=== PATIENT | male | born 1940 | race Caucasian/White ===

== ENCOUNTER 2019-07-21 12:04 | Inpatient (IN) | payer MEDICARE ==
[~2019-07-21] VITALS: Ht 180.3 cm; Wt 105.7 kg
[2019-07-21] MEDS ORDERED: ASPIRIN 81 MG CHEW TAB PO ONE ×2 (12:30→15:00)
--- NOTE | 2019-07-21 13:02 | Diagnostic Imaging Report ---
Exam: Chest one view Clinical history: Chest pain Findings: Mild increase in right basilar pulmonary opacity is noted which may represent early consolidation. There is no evidence of pleural effusion or pneumothorax. The cardiac size is within normal limits. The regional osseous structures are unremarkable. Signed by: Dr. Jalil Renner MD on 07/21/2019 12:59 PM
[2019-07-21 13:24] LABS: BILIRUBIN,URINE NEGATIVE (NEGATIVE); CLARITY,URINE SL CLOUDY (CLEAR); COLOR,URINE YELLOW (YELLOW); KETONES,URINE NEGATIVE (NEGATIVE); LEUKOCYTE ESTERASE ,URINE NEGATIVE (NEGATIVE); NITRITE,URINE NEGATIVE (NEGATIVE); PROTEIN,URINE DIPSTICK 1+ (NEGATIVE); URINE UROBILINOGEN 0.2 mg/dL (0.2 - 1)
[2019-07-21 13:28] LABS: BASOPHILS % 0.2 % (0.0-1.0); EOSINOPHILS # (AUTO) 0.1 (0.0-0.4); EOSINOPHILS % 0.7 % (0.0-6.0); HEMATOCRIT 37.8 % (38.2-49.6); HEMOGLOBIN 12.9 g/dL (14.0-18.0); LYMPHOCYTES # (AUTO) 0.8 (1.0-3.2); LYMPHOCYTES % 4.2 % (18.0-39.1); MEAN CORPUSCULAR HEMOGLOBIN 30.3 pg (28-32); MEAN CORPUSCULAR HGB CONC 34.1 g/dL (31-35); MEAN CORPUSCULAR VOLUME 88.7 fL (81-99); MONOCYTES # (AUTO) 1.5 (0.2-0.8); MONOCYTES % 7.6 % (4.4-11.3); NEUTROPHILS # (AUTO) 17.3 (2.1-6.9); NEUTROPHILS % 86.9 % (38.7-80.0); PLATELET COUNT 190 x10e3/uL (140-360); RED BLOOD COUNT 4.26 x10e6/uL (4.3-5.7); RED CELL DISTRIBUTION WIDTH 14.5 % (11.7-14.4)
[2019-07-21 13:45] LABS: ALANINE AMINOTRANSFERASE 22 IU/L (0-55); ALBUMIN 3.5 g/dL (3.5-5.0); ALBUMIN/GLOBULIN RATIO 0.9 (0.8-2.0); ALKALINE PHOSPHATASE 56 IU/L (40-150); ANION GAP 12.5 mmol/L (8-16); BLOOD UREA NITROGEN 17 mg/dL (7-26); BUN/CREATININE RATIO 14 (6-25); CALCIUM 9.7 mg/dL (8.4-10.2); CARBON DIOXIDE 24 mmol/L (22-29); CHLORIDE 100 mmol/L (98-107); CREATINE KINASE 80 IU/L (30-200); CREATININE, SERUM 1.24 mg/dL (0.72-1.25); EST GLOMERULAR FILTRATION RATE 57 ML/MIN (60-); GLUCOSE 107 mg/dL (74-118); POTASSIUM 3.5 mmol/L (3.5-5.1); SODIUM 133 mmol/L (136-145)
[2019-07-21 14:10] LABS: BACTERIA,URINE FEW /HPF; EPITHELIAL CELLS,URINE FEW /LPF; RBC,URINE 0-5 /HPF (0-5)
[2019-07-21 14:10] LABS: INR 1.22; PARTIAL THROMBOPLASTIN TIME 37.6 seconds (23.8-35.5)
[2019-07-21] MEDS ORDERED: SODIUM CHLORIDE FLUSH 10 ML SYR INJ PRN (14:45)
[2019-07-21] MEDS ORDERED: ONDANSETRON HCL INJ 2MG/ML 2ML 2 MG/ML VIAL IV PRN (14:45)
[2019-07-21] MEDS ORDERED: VANCOMYCIN 1GM/NS 250 ML 250 ML IV SCH (14:45)
--- OUTSIDE RECORDS SUMMARY | 2019-07-21 15:21 | XMS REPORT ---
Author Author [facility] Address Unknown Phone Unavailable Care Team Providers Care Resource Specialist Name Role Phone Markie HUGHES Unavailable Unavailable Problems This patient has no known problems. Allergies, Adverse Reactions, Alerts This patient has no known allergies or adverse reactions. Medications This patient has no known medications. Results Test Description Test Time Test Comments Text Results Atomic Results Result Comments CHEST SINGLE (NOT PORTABLE) 2019-07-21 12:57:00 [place] [address] Patient Name: AYSHA MAGANA MR #: [id number] : 1940 Age/Sex: 79/M Req #: [id number] Adm Physician: Ordered by: JAZMYN HUGHES MD Report #: [id number] Location: ER Room/Bed: Procedure: [id number] DX/CHEST SINGLE (NOT PORTABLE) Exam Date: 07/21/19 Exam Time: 1245 REPORT STATUS: Signed Exam: Chest one view Clinical history: Chest pain Findings: Mild increase in right basilar pulmonary opacity is noted which may represent early consolidation. There is no evidence of pleural effusion or pneumothorax. The cardiac size is within normal limits. The regional osseous structures are unremarkable. Signed by: Dr. Jalil Franks MD on 07/21/2019 12:59 PM Dictated By: PIERRE FRANKS MD [id number] Transcribed By: BUZZ on 07/21/191258 COPY TO: JAZMYN HUGHES MD
[2019-07-21 16:00] VITALS: BP 136/62
--- NOTE | 2019-07-21 16:00 | NUR ---
Received pt from ER at this time. Pt is aox4 and able to verbalize needs. Pt has redness to right lower ext. Breaths are even and unlabored on room air. IV to right AC is patent and intact.
[2019-07-21] MEDS ORDERED: ISOSORBIDE MONO20 MG PO (16:25)
[2019-07-21] MEDS ORDERED: AMLODIPINE BESYL5 MG PO (16:25)
[2019-07-21 16:28] VITALS: BP 136/62
--- NOTE | 2019-07-21 16:29 | Diagnostic Imaging Report ---
Exam: CT pulmonary angiogram Clinical History: Chest pain, shortness of breath Technique: Helical images of the chest were obtained after IV contrast administration using the pulmonary embolism protocol. DOSE REDUCTION: The exams was performed according to the departmental dose-optimization program which includes automated exposure control, adjustment of the mA and/or kV according to patient size and/or use of iterative reconstruction technique. Findings: There is no evidence of acute pulmonary embolism in the main pulmonary artery or its visualized branches. There is no evidence of pulmonary edema, consolidation, pleural effusion, or pneumothorax. Tracheobronchial tree is clear. There is no evidence of mediastinal or hilar adenopathy. The cardiac size is within normal limits. The great vessels are normal in caliber and configuration. The visualized upper abdominal solid organs are unremarkable. A small hiatal hernia is noted. Impression: No CT evidence of acute pulmonary embolism. Signed by: Dr. Jalil Renner MD on 07/21/2019 4:25 PM
[2019-07-21] MEDS ORDERED: SODIUM CHLORIDE 0.9% 250ML 250 ML ONE (16:35)
[2019-07-21] MEDS: ACETAMINOPHEN 325 MG TAB PO PRN (16:36)
--- NOTE | 2019-07-21 18:00 | NUR ---
Spoke with Dr. Christianson and received orders to restart home medications, and antibiotics.
[2019-07-21] MEDS ORDERED: HYDROCODONE/APAP 5MG-325MG TAB PO PRN (18:15)
[2019-07-21] MEDS ORDERED: SODIUM CHLORIDE 0.9% 50ML 50 ML ONE (19:05)
[2019-07-21] MEDS ORDERED: IOPAMIDOL 370 MG/ML 200 ML INFUS..BTL INJ ONE (19:05)
--- NOTE | 2019-07-21 19:15 | NUR ---
patient received awake, alert, sitting up on side of bed. no c/o pain noted. family at the bedside. pm assessment complete. patient instructed to call for assistance when needed.
[2019-07-21 19:30] VITALS: BP 121/59
--- NOTE | 2019-07-21 20:00 | NUR ---
Right lower extremity remains red and swollen. no c/o pain noted at this time.
[2019-07-21 20:22] VITALS: BP 121/59
[2019-07-21] MEDS ORDERED: MELATONIN 5 MG TABLET PO PRN (21:00)
[2019-07-21] MEDS: CEFEPIME 1GM/NS 0.9% 50 ML 50 ML IV SCH (21:08)
[2019-07-22] VITALS (8 sets, daily range): BP systolic 116–147; BP diastolic 58–74
[2019-07-22] MEDS: ACETAMINOPHEN 325 MG TAB PO PRN ×3 (00:49→21:47)
--- NOTE | 2019-07-22 00:55 | NUR ---
patient medicated with tylenol 650mg po for c/o headache 02/20 at this time per patients request.
[2019-07-22 01:11] LABS: CREATINE KINASE 101 IU/L (30-200)
[2019-07-22] MEDS ORDERED: VANCOMYCIN 1GM/NS 250 ML 250 ML IV SCH (05:00)
[2019-07-22 05:55] LABS: BASOPHILS # (AUTO) 0.1 (0.0-0.1); BASOPHILS % 0.3 % (0.0-1.0); EOSINOPHILS % 0.2 % (0.0-6.0); HEMATOCRIT 35.5 % (38.2-49.6); HEMOGLOBIN 11.8 g/dL (14.0-18.0); LYMPHOCYTES % 6.9 % (18.0-39.1); MEAN CORPUSCULAR HEMOGLOBIN 29.9 pg (28-32); MEAN CORPUSCULAR HGB CONC 33.2 g/dL (31-35); MEAN CORPUSCULAR VOLUME 90.1 fL (81-99); MONOCYTES # (AUTO) 1.6 (0.2-0.8); MONOCYTES % 10.9 % (4.4-11.3); NEUTROPHILS # (AUTO) 12.2 (2.1-6.9); NEUTROPHILS % 81.2 % (38.7-80.0); PLATELET COUNT 172 x10e3/uL (140-360); RED BLOOD COUNT 3.94 x10e6/uL (4.3-5.7); RED CELL DISTRIBUTION WIDTH 14.6 % (11.7-14.4)
[2019-07-22] MEDS: CEFEPIME 1GM/NS 0.9% 50 ML 50 ML IV SCH ×2 (06:00→13:00)
[2019-07-22 06:11] LABS: INR 1.25; PROTHROMBIN TIME 16.3 seconds (11.9-14.5)
[2019-07-22 06:12] LABS: PARTIAL THROMBOPLASTIN TIME 43.4 seconds (23.8-35.5)
[2019-07-22 06:30] LABS: CREATINE KINASE MB 0.7 ng/mL (0-5.0)
--- NOTE | 2019-07-22 06:46 | Diagnostic Imaging Report ---
EXAMINATION: CHEST SINGLE (PORTABLE) INDICATION: Shortness of breath. COMPARISON: 07/21. FINDINGS: TUBES and LINES: None. LUNGS: Mild bilateral low lung volumes. Interval development of mild density in the right upper lobe atelectasis versus developing pneumonia in the proper setting. Mild bilateral pulmonary venous congestion. Left basilar subsegmental atelectasis. PLEURA: No pleural effusion or pneumothorax. HEART AND MEDIASTINUM: Cardiac size is mildly enlarged. BONES AND SOFT TISSUES: No acute osseous lesion. UPPER ABDOMEN: No free air under the diaphragm. IMPRESSION: Mild bilateral low lung volumes. Interval development of mild density in the right upper lobe atelectasis versus developing pneumonia in the proper setting. Signed by: Dr. Sulema Green M.D. on 07/22/2019 6:42 AM
[2019-07-22 07:02] LABS: ANION GAP 11.6 mmol/L (8-16); CALCIUM 9.1 mg/dL (8.4-10.2); CREATININE, SERUM 1.28 mg/dL (0.72-1.25); POTASSIUM 3.6 mmol/L (3.5-5.1)
--- NOTE | 2019-07-22 07:20 | NUR ---
PATIENT IS AWAKE, ALERT, AND IN STABLE CONDITION WITH NO S/S OF RESPIRATORY DISTRESS. NO PAIN VOICED. CELLULITIS NOTED TO RIGHT LOWER EXTREMITY- RED AND WARM TO TOUCH. PITTING EDEMA NOTED OT RIGHT LOWER LEG. TELEMETRY APPLIED. PRESENT IN ROOM. CALL LIGHT IS WITHIN REACH, PATIENT INSTRUCTED TO CALL FOR ASSISTANCE NEEDED.
--- NOTE | 2019-07-22 12:26 | Diagnostic Imaging Report ---
History:Headache Comparison studies:None Technique: Axial images were obtained from the skull base to the vertex. Coronal and sagittal images reconstructed from the axial data. Intravenous contrast: None Dose modulation, iterative reconstruction, and/or weight based adjustment of the mA/kV was utilized to reduce the radiation dose to as low as reasonably achievable. Findings: Scalp/skull: No abnormalities. Extra-axial spaces: No masses. No fluid collections. Brain sulci: Mildly prominent. Ventricles: Mild compensatory dilatation. No hydrocephalus. Parenchyma: Few hypodensities in the supratentorial white matter are small vessel ischemic changes. No masses, hemorrhage, acute or chronic cortical vascular insults. Sellar/suprasellar region: Partial and sella configuration. Craniocervical junction: Patent foramen magnum. No Chiari one malformation. Incidental findings: Atherosclerotic calcifications in the carotid siphons . Impression: No acute abnormalities. Chronic findings: 1. Mild generalized volume loss. 2. Mild supratentorial white matter small vessel ischemic changes. Signed by: DR Ross Drake M.D. on 07/22/2019 12:23 PM
--- NOTE | 2019-07-22 12:30 | NUR ---
PATIENT REFUSED TORADOL AT THIS TIME.
[2019-07-22] MEDS: FUROSEMIDE 40 MG TAB PO SCH (12:53)
--- NOTE | 2019-07-22 16:38 | History and Physical ---
CHIEF COMPLAINT: Right lower extremity cellulitis with fever. HISTORY OF PRESENT ILLNESS: This is a 79-year-old male very pleasant individual, who has a history of hypertension and comes in from the [facility]rology [facility] yesterday with complaints of right lower extremity cellulitis and underlying shortness of breath. The patient came in and was evaluated by the ER physician, where a CTA of the chest was found to be negative for pulmonary embolism. Lower extremity venous Doppler was also found to be negative for any DVT. The patient was found to have some redness in the right lower extremity that he reports started on Saturday with associated subjective fevers and chills. He reports he was not feeling well, very sleepy and groggy when this occurred on Saturday and reported to his urologist yesterday for followup visit and was told to come here for further evaluation and management. The patient was seen and evaluated at bedside on the medical floor. He currently states that his right lower extremity cellulitis has improved since starting antibiotics yesterday. REVIEW OF SYSTEMS: Pertinent positives: Fevers, chills, and right lower extremity cellulitis. Pertinent negatives: Denies any chest pain, palpitation, nausea, vomiting, diarrhea, dysuria, hematuria, frequency, urgency, lightheadedness, dizziness, abdominal pain, headaches, shortness of breath, cough, congestion or any other complaints. Denies any other complaints. The rest of 14-point review of systems have been reviewed with the patient and are negative. ALLERGIES: CODEINE. HOME MEDICATIONS: Norvasc and isosorbide mononitrate. PAST MEDICAL HISTORY: Hypotension. PAST SURGICAL HISTORY: None. FAMILY HISTORY: Hypertension and diabetes. SOCIAL HISTORY: No drugs. No alcohol. Does not smoke. He is . PHYSICAL EXAMINATION: VITAL SIGNS: Temperature is 97.3, pulse 50, respiratory rate is 18, blood pressure 131/60, pulse ox 97% on room air. GENERAL: Not in acute distress. Alert and oriented x3. Cooperative on examination. HEENT: Head; normocephalic, atraumatic. Eyes; pupils are equal, round, and reactive to light bilaterally. Extraocular movements intact bilaterally. Throat; no evidence of erythema or exudates in the posterior pharynx. Has poor dentition. NECK: Supple. Good range of motion. PULMONARY: Clear to auscultation bilaterally. No wheezing, no rales, no rhonchi, no crackles appreciated. CARDIOVASCULAR: Positive S1 and S2. No murmurs, rubs, or gallops appreciated. ABDOMEN: Soft, nondistended, and nontender to palpation. Bowel sounds present. MUSCULOSKELETAL: Strength is 5/5 throughout. No evidence of any muscle deficits on examination. No weakness appreciated. NEUROLOGIC: Cranial nerve II through XII grossly intact. No evidence of any neurological deficits on exam. SKIN: Right lower extremity cellulitis, erythematic, mild, warm to touch, seems to have improved after IV antibiotics. EXTREMITIES: Trace edema bilateral lower extremities. LABORATORY FINDINGS: Show white count on admission 19.8, now 15, hemoglobin 11.8, hematocrit 35, and platelets of 172. Coagulation; PT 16, INR 1.2, PTT 43. Chemistry; sodium 133, potassium 3.6, chloride 102, bicarb 23, anion gap of 11, BUN is 19, creatinine is 1.2, calcium 9.1, glucose is 107, total bilirubin is 1. Troponins were negative. BNP 353, total protein 7.4, albumin was 3.5, CK 86, ALT 22, AST 21, total bilirubin is 1. Urinalysis negative. Blood cultures no growth today. IMAGING STUDIES: Lower extremity venous Doppler negative for DVT. Chest x-ray was also found to have some pulmonary opacities seen. CTA of the chest shows no evidence of any pulmonary embolism. No comment for any consolidation. Chest x-ray repeat shows some mild density atelectasis and some opacity. IMPRESSION: 1. Right lower extremity cellulitis. 2. Hypertension. 3. Headaches, likely due to underlying illness. 4. Bilateral lower extremity trace edema. 5. Hypertension. PLAN: At this time, for his cellulitis ID has been consulted, he is on IV antibiotics. Blood cultures are pending. It seems that his cellulitis has improved tremendously. In relation to his hypertension we are going to resume all his home medications including amlodipine and isosorbide mononitrate. In relation to his headaches, CT brain was ordered. I will order IV Toradol as well as pain control. In the event if his headaches continue to get worse we will go ahead and consult with Neurology for further evaluation. I will start him on low-dose Lasix for lower extremity edema. He will be on Lovenox for DVT prophylaxis. Heart healthy diet. I discussed plan of care with patient, patient's and nursing staff taking care of the patient. MD MAURY Dunbar/MICHELLE /[id number]
[2019-07-22] MEDS: CLINDAMYCIN 600MG / 50ML 50 ML IV SCH ×2 (17:14→23:40)
[2019-07-22] MEDS: ISOSORBIDE MONONITRATE 20 MG TAB PO SCH (17:15)
[2019-07-22] MEDS: AMLODIPINE BESYLATE 5 MG TAB PO SCH (17:15)
[2019-07-22] MEDS: KETOROLAC TROMETHAMINE 30 MG/ML VIAL IV PRN (17:25)
--- NOTE | 2019-07-22 17:31 | NUR ---
CALL PLACED OUT TO DR. RALPH TO VERIFY VANCOMYCIN DC ORDER- AWAITING CALLBACK.
--- NOTE | 2019-07-22 19:21 | NUR ---
PATIENT IS IN STABLE CONDITION WITH NO S/S OF RESPIRATORY DISTRESS. NO PAIN VOICED. TELEMETRY APPLIED. CALL LIGHT IS WITHIN REACH, PATIENT INSTRUCTED TO CALL FOR ASSISTANCE NEEDED. BEDSIDE REPORT GIVEN TO ONCOMING NURSE.
--- NOTE | 2019-07-22 19:35 | NUR ---
CALL PLACED OUT TO DR. RALPH REGARDING CLARIFICATION TO DC RADHAO- AWAITING CALLBACK.
--- NOTE | 2019-07-22 19:38 | NUR ---
PT IS RESTING IN BED WITH FAMILY AT BEDSIDE. RESPIRATION IS EVEN AND UNLABORED, NO DISTRESS NOTED. BED IN THE LOWEST POSITION, LOCKED, AND CALL LIGHT WITHIN REACH. WILL CONTINUE TO MONITOR.
--- NOTE | 2019-07-22 20:40 | NUR ---
PER DR RALPH D/López ALL VANCOMYCIN ON PT EMAR. WILL CONTINUE TO MONITOR.
--- NOTE | 2019-07-22 22:15 | Consultation ---
DATE OF CONSULTATION: REASON FOR CONSULTATION: Infection of the leg. HISTORY OF PRESENT ILLNESS: This patient is very pleasant 79-year-old white male. He denies any past medical history. The family concern he may be forgetful. He does have history of hypertension and osteoarthritis. The patient comes into the hospital because he was feeling sick, started few days ago, then the right leg became being red and swollen. The patient almost passed out. He had chills, lasted 3 hours. The patient came here because the leg became red and swollen, he was not feeling well. He is having some pain. The patient came to the emergency room, he had a Doppler, which I did see the result, which came back negative. He had a chest x-ray, which was negative. He had a CT of the chest showed no evidence of PE. The patient was started on Lasix, Tylenol, and vancomycin as well as a cefepime. Currently, he is feeling better, he is lying in bed. PAST MEDICAL HISTORY: Hypertension. PAST SURGICAL HISTORY: He denies. ALLERGIES: NKA. SOCIAL HISTORY: No smoking, drug abuse, or alcohol abuse. 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 Family is at the bedside, very caring. LABORATORY DATA: His lab cultures are still pending. His white count on admission was 19.8, hemoglobin 12, hematocrit 37. Sodium 126, potassium 3.6, creatinine 1.28. BNP of 53. PHYSICAL EXAMINATION: GENERAL: He is currently alert, oriented, does not seem to be in acute distress. VITAL SIGNS: Stable, currently afebrile. HEENT: Normocephalic, not icteric. NECK: Supple. CHEST: Clear. HEART: S1, S2. No murmur. ABDOMEN: Soft. Bowel sounds present. EXTREMITIES: Right leg, there is some erythema and edema. IMPRESSION: 1. Sepsis on admission, cellulitis of right lower extremity, we will change of clindamycin 600 IV q.8. 2. Acute kidney injury, probably chronic kidney disease. 3. Concern about early dementia. 4. Discussed with family at length. Time spent with the family and the patient 60 minutes. MD LACEY Cabezas/MICHELLE /[id number]
[2019-07-23] VITALS (8 sets, daily range): BP systolic 121–149; BP diastolic 57–85
[2019-07-23] MEDS: CLINDAMYCIN 600MG / 50ML 50 ML IV SCH ×3 (05:22→17:06)
[2019-07-23] MEDS: KETOROLAC TROMETHAMINE 30 MG/ML VIAL IV PRN (08:46)
[2019-07-23] MEDS: AMLODIPINE BESYLATE 5 MG TAB PO SCH ×2 (08:46→16:09)
[2019-07-23] MEDS: FUROSEMIDE 40 MG TAB PO SCH (08:46)
[2019-07-23] MEDS: ISOSORBIDE MONONITRATE 20 MG TAB PO SCH ×2 (08:46→16:09)
[2019-07-23 09:06] LABS: BASOPHILS % 0.4 % (0.0-1.0); EOSINOPHILS # (AUTO) 0.1 (0.0-0.4); EOSINOPHILS % 0.8 % (0.0-6.0); HEMOGLOBIN 11.4 g/dL (14.0-18.0); LYMPHOCYTES # (AUTO) 1.1 (1.0-3.2); LYMPHOCYTES % 11.3 % (18.0-39.1); MEAN CORPUSCULAR HEMOGLOBIN 29.5 pg (28-32); MEAN CORPUSCULAR HGB CONC 32.6 g/dL (31-35); MEAN CORPUSCULAR VOLUME 90.4 fL (81-99); MONOCYTES # (AUTO) 0.8 (0.2-0.8); MONOCYTES % 8.3 % (4.4-11.3); NEUTROPHILS # (AUTO) 7.6 (2.1-6.9); NEUTROPHILS % 78.8 % (38.7-80.0); PLATELET COUNT 188 x10e3/uL (140-360); RED BLOOD COUNT 3.87 x10e6/uL (4.3-5.7); RED CELL DISTRIBUTION WIDTH 14.6 % (11.7-14.4)
[2019-07-23 09:41] LABS: ANION GAP 13.4 mmol/L (8-16); CREATININE, SERUM 1.19 mg/dL (0.72-1.25); POTASSIUM 3.4 mmol/L (3.5-5.1)
[2019-07-23] MEDS: CEFTRIAXONE SOD 2 GM/NS 100 ML 100 ML IV SCH (11:42)
[2019-07-23] MEDS ORDERED: POTASSIUM CHLORIDE 20 MEQ TAB CR PO ONE (12:00)
[2019-07-23] MEDS ORDERED: ONDANSETRON HCL 4 MG ORAL DISINTEGRATING TAB PO PRN (15:15)
--- NOTE | 2019-07-23 15:26 | Progress Note ---
DATE: 07/23/2019 Medicine Progress Note SUBJECTIVE: The patient states feeling much better today. His right lower extremity cellulitis is improving. No overnight events. He has no complaints at this time. PHYSICAL EXAMINATION: VITAL SIGNS: Temperature is 96.1, pulse 60, respiratory rate is 19, blood pressure 122/56, pulse ox is 97% on room air. GENERAL: Not in acute distress. Alert and oriented x3. Cooperative on examination. HEENT: Head; normocephalic, atraumatic. Eyes; pupils are equal, round, and reactive to light bilaterally. Extraocular movements are intact bilaterally. Throat; no evidence of erythema or exudates in the posterior pharynx. Has poor dentition. NECK: Supple. Good range of motion. PULMONARY: Clear to auscultation bilaterally. No wheezing, no rales, no rhonchi, no crackles appreciated. CARDIOVASCULAR: Positive S1 and S2. No murmurs, rubs, or gallops appreciated. ABDOMEN: Soft, nondistended, and nontender to palpation. Bowel sounds present. MUSCULOSKELETAL: Strength is 5/5 throughout. No evidence of any muscle deficits on examination. No weakness appreciated. NEUROLOGIC: Cranial nerve 2 through 12 grossly intact. No evidence of any neurological deficits on exam. SKIN: Intact. Warm to touch. Good cap refill. PSYCHIATRIC: Normal affect and mood. EXTREMITIES: No edema. Good range of motion throughout. His right lower extremity redness has improved tremendously, still erythematic, it is nontender to palpation. It is not warm to touch at this time, but improved tremendously. LABORATORY DATA: Laboratory findings show white count of 9.6, hemoglobin 11.4, hematocrit 35, platelets of 188. Coagulation reviewed. PT 16, INR 1.2, PTT 43. Chemistry; sodium 137, potassium 3.4, chloride 103, bicarb 24, anion gap of 13, BUN 24, creatinine 1.1, glucose is 138, calcium is 9. Troponins were all negative. MICROBIOLOGY: Blood culture showed no growth to date. IMAGING STUDY: CT brain was performed, found to be negative. IMPRESSION: 1. Right lower extremity cellulitis, much improved. 2. Hypertension. 3. Headaches episodically, but improving. 4. Bilateral lower extremity trace edema. 5. Hypertension. PLAN: At this time, as per his cellulitis seems to be improving, IV antibiotics is currently managed by ID. Blood cultures show no growth today. In relation to his headaches, his headaches improved, but still he has episodic pain. He will continue with IV Toradol for pain control as well as pain medications. CT brain was found to be negative. I will go ahead and just get a Neurology consultation to come and evaluate him and see if this is likely a migraine headache or some other form of headache. He is already on diuretics for his lower extremity edema. Continue with Lovenox for DVT prophylaxis. Heart healthy diet. I discussed plan of care with the nurse and the patient at bedside and he verbalized understanding. MD MAURY Dunbar/MICHELLE /[id number]
[2019-07-23] MEDS: ENOXAPARIN SOD INJ 40 MG/0.4 ML SYR SC SCH (16:09)
[2019-07-23] MEDS: PANTOPRAZOLE SOD 40 MG TABEC PO SCH (17:41)
--- NOTE | 2019-07-23 19:08 | NUR ---
PATIENT IN STABLE CONDITION WITH NO S/S OF RESPIRATORY DISTRESS. NO PAIN VOICED. CALL LIGHT IS WITHIN REACH, PATIENT INSTRUCTED TO CALL FOR ASSISTANCE NEEDED. PRESENT IN ROOM. REPORT GIVEN TO ONCOMING NURSE.
--- NOTE | 2019-07-23 19:22 | NUR ---
PT IS RESTING IN BED WITH AT BEDSIDE. RESPIRATION IS EVEN AND UNLABORED, NO DISTRESS NOTED. BED IN THE LOWEST POSITION, LOCKED, AND CALL LIGHT WITHIN REACH. WILL CONTINUE TO MONITOR.
[2019-07-23] MEDS: METHYLPREDNISOLONE SOD SUCC 125 MG/2ML VIAL IV SCH (20:37)
[2019-07-23] MEDS: SODIUM CHLORIDE 0.9% 1000ML 1,000 ML IV SCH (20:37)
[2019-07-23] MEDS: PROMETHAZINE 25MG/ NS 50ML (IV) IV SCH (20:37)
[2019-07-23] MEDS: VALPROATE SOD INJ 500 MG in SODIUM CHLORIDE 0.9% 100 ML 100 ML IV SCH (21:44)
[2019-07-24] VITALS (8 sets, daily range): BP systolic 122–150; BP diastolic 60–76
[2019-07-24] MEDS: CLINDAMYCIN 600MG / 50ML 50 ML IV SCH ×4 (00:05→17:27)
--- NOTE | 2019-07-24 01:27 | Consultation ---
DATE OF CONSULTATION: 07/23/2019 Neurology Consult Note HISTORY OF PRESENT ILLNESS: Mr. Alves is a 79-year-old right-hand dominant man with past medical history significant for hypertension, hyperlipidemia, coronary artery disease, and nephrolithiasis, admitted to [facility] on July 21, 2019, with right lower extremity cellulitis with fever. A Neurology consult is requested to evaluate and treat headaches. Approximately 4 days ago, the patient began to experience headaches, which are described as follows: The pain is present either over the right occiput or at the right mandaen and does not radiate. Mr. Alves describes the pain as throbbing and rates it a 5 to 6/10. The patient reports, at times, his right eye seems to "pulse" with the throbbing pain. Mr. Alves does not report photophobia, phonophobia, nausea, vomiting, dizziness, or visual disturbance associated with the headaches. As stated above, these headaches have been nearly constant over the past 4 days. Mr. Alves is not aware of any triggers for his headaches. He does report the pain is mildly improved with injections of Toradol. Mr. Alves does not report a personal history of headaches. His son, however, does have migraines. Mr. Alves does not report neck pain, limited range of motion of the cervical spine, or crepitus of the cervical spine. REVIEW OF SYSTEMS: Fevers, swelling of the right leg, pain of the right leg, headache. Otherwise, a 12-point review of systems is negative. PAST MEDICAL HISTORY: Hypertension, hyperlipidemia, coronary artery disease, nephrolithiasis. PAST SURGICAL HISTORY: Cardiac catheterization, status post stent placement; right knee surgery (repair of torn meniscus and removal of Blum cyst); right inguinal hernia repair; abdominal hernia repair; lithotripsy. PAST HOSPITALIZATIONS: Surgeries/procedures as listed. FAMILY MEDICAL HISTORY: Mr. Alves's father is from coronary artery disease. His mother at the age of 93 years from natural causes. Mr. Alves has 4 siblings, 1 brother and 3 sisters, all of whom are alive and healthy. As detailed in the history of present illness, Mr. Alves has a son, who experiences migraines. SOCIAL HISTORY: Mr. Alves is . 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 The patient does not report current or prior tobacco, alcohol, or recreational drug use. HOME MEDICATIONS: Amlodipine 2.5 mg by mouth twice daily, isosorbide mononitrate 5 mg by mouth twice daily. HOSPITAL MEDICATIONS: Tylenol, Norvasc, ceftriaxone, clindamycin, Lovenox, Lasix, Bethel, isosorbide mononitrate, ketorolac, melatonin, Zofran, Protonix. ALLERGIES: CODEINE. NO KNOWN FOOD ALLERGIES. NO KNOWN ALLERGIES TO LATEX. NO KNOWN ALLERGIES TO IODINE OR OTHER CONTRAST MATERIALS. PHYSICAL EXAMINATION: Vital Signs: Height 71 inches, weight 240 pounds, BMI 33.5 kg/m2, blood pressure 134/85 mmHg, pulse 68 beats per minute, respiratory rate 18 breaths per minute, and oxygen saturation 97% on room air. General: The patient is awake and alert, does not appear distressed. Obese. HEENT: Normocephalic, atraumatic. Pupils are equal, round, and reactive to light. Moist mucous membranes. Minimal tenderness to palpation over the bilateral greater and lesser occipital nerves. NECK: Supple. No appreciable thyromegaly. No appreciable carotid bruits. CARDIOVASCULAR: S1, S2, regular rate and rhythm. No murmurs, rubs, or gallops. RESPIRATORY: Clear to auscultation bilaterally. No wheezes, rhonchi, or rales. EXTREMITIES: The skin is warm and dry. No clubbing or cyanosis. 1+ pretibial pitting edema over the right lower extremity is observed. The posterior tibial and dorsalis pedis pulses are 2+ and symmetric. SKIN: The right distal foreleg is erythematous and warm to the touch. NEUROLOGIC: Memory/Attention: The patient is awake and alert, oriented to person, place, time, and situation. Cranial Nerves: Cranial nerve I - not tested. Cranial nerve II, III, IV, and - pupils are equal and round, reactive briskly to light (from 4 mm to 2 mm). Extraocular movements intact. No nystagmus. Cranial nerve V - sensation to light touch and pinprick is intact in the bilateral V1 through V3 distributions. Strength of the temporalis and masseter muscles is within normal limits. Cranial nerve VII - the face is symmetric as are all facial movements. Strength is within normal limits. Cranial nerve VIII - hearing is markedly diminished to finger rub bilaterally. Cranial nerve IX, X - the soft palate elevates equally and symmetrically. Cranial nerve XI - normal strength of the bilateral sternocleidomastoid and trapezius muscles. Cranial nerve XII - the tongue protrudes midline and moves symmetrically from [id number]. Strength: Bulk is normal. Strength is 5/5 in the bilateral deltoids, triceps, biceps, brachioradialis, wrist flexors and extensors, finger flexors and extensors, intrinsic hand muscles, hip flexors, knee flexors and extensors, ankle dorsiflexion and plantar flexion, and intrinsic foot muscles. Tone is normal. DTRs: Deep tendon reflexes are 1+ and symmetric at the triceps, biceps, brachioradialis, and patellas. Deep tendon reflexes are absent and symmetric at the Achilles. Plantar responses are flexor bilaterally. Sensation: Sensation is intact to light touch and pinprick in both arms and both legs. Cerebellar: [id number] and heel-shanks movements are intact without dysmetria or other impairment. Gait: Deferred. Speech: Spontaneous speech is normal without appreciable dysarthria or aphasia. Repetition is intact. Involuntary movements: None. Pronator Drift: None. LABORATORY DATA: The most recent basic metabolic panel is significant for sodium of 3.4, estimated GFR of 59, and serum glucose of 138. A liver function panel collected on July 21, 2019, was unremarkable. Cardiac enzymes are negative x3. B- natriuretic peptide 353.6. Lactic acid 10.5. The most recent CBC with differential and platelets reveals a white blood cell count of 9.62 with a left shift with 78.8% neutrophils, 11.3% lymphocytes, 8.3% monocytes, 0.8% eosinophils, and 0.4% basophils. The hemoglobin and hematocrit are 11.4 and 35.0, respectively. The platelet count is 188. PT 16.3, INR 1.25, PTT 43.4. A urinalysis collected on July 21, 2019, revealed slightly cloudy urine with 1+ protein. Blood cultures collected on July 21, 2019, revealed no growth after 48 hours. DIAGNOSTIC STUDIES: Electrocardiogram 07/21/2019: Normal sinus rhythm at 72 beats per minute. Chest x-ray 07/21/2019: Mild increase in right basilar pulmonary opacity is noted, which may represent early consolidation. There is no evidence of pleural effusion or pneumothorax. The cardiac size is within normal limits. The regional osseous structures are unremarkable. Chest CT, 07/21/2019: No CT evidence of acute pulmonary embolism. Chest x-ray, 07/22/2019: Mild bilateral low lung volumes. Interval development of mild density in the right upper lobe atelectasis versus developing pneumonia in the proper setting. CT of the brain without contrast, 07/22/2019: On my review, there is no evidence of recent or remote large territorial ischemia, hemorrhage, mass, or mass effect. There is mild diffuse cerebral atrophy with compensatory dilatation of the ventricles, appropriate for the patient's age. Their findings compatible with mild chronic small vessel ischemic disease. Lower extremity venous Doppler study report, 07/21/2019: There is no evidence of vein thrombosis in the visualized vessels of the right leg. ASSESSMENT AND PLAN: Mr. Alves is a 79-year-old right-hand dominant man with past medical history as detailed admitted to [facility] as an inpatient on July 21, 2019, with right lower extremity cellulitis with fever as well as a right-sided headache, which is described in the history of present illness. Mr. Alves's neurological examination is nonfocal. His laboratory data and other diagnostic studies have been reviewed and are documented above. Mr. Alves' history is most compatible with a diagnosis of occipital neuralgia. However, there is minimal tenderness to palpation of the greater and lesser occipital nerves, which is atypical of occipital neuralgia. On the other hand, the patient has experienced a nearly constant throbbing pain over one side of his head, more suggestive of migraine. RECOMMENDATIONS: Are as follows: 1. Mr. Alves will be prescribed intravenous fluids to ensure he is well hydrated. Normal saline at 75 mL/h will be prescribed. 2. Mr. Alves will be treated with a combination of medications in an effort to break his current headache cycle. Promethazine 25 mg intravenously q.6 hours x2 doses will be prescribed. 3. Methylprednisolone 125 mg intravenously q.6 hours x2 doses will be prescribed. 4. Valproic acid 500 mg intravenously q.6 hours x2 doses will be prescribed. 5. Defer treatment of the remaining medical comorbidities to the primary and other services following the patient. 6. Anticipated discharge: Home in 2 to 3 days. Thank you for this consultation. I will continue to follow the patient while he remains in the hospital. TIME SPENT: 50 minutes. Lore Baker MD CP/MICHELLE /[id number] MTDTamela
[2019-07-24] MEDS: VALPROATE SOD INJ 500 MG in SODIUM CHLORIDE 0.9% 100 ML 100 ML IV SCH (02:28)
[2019-07-24] MEDS: METHYLPREDNISOLONE SOD SUCC 125 MG/2ML VIAL IV SCH (02:28)
[2019-07-24] MEDS: PROMETHAZINE 25MG/ NS 50ML (IV) IV SCH (03:34)
[2019-07-24 06:52] LABS: BASOPHILS % 0.3 % (0.0-1.0); HEMATOCRIT 39.4 % (38.2-49.6); LYMPHOCYTES # (AUTO) 0.9 (1.0-3.2); LYMPHOCYTES % 12.8 % (18.0-39.1); MEAN CORPUSCULAR HEMOGLOBIN 29.5 pg (28-32); MEAN CORPUSCULAR VOLUME 89.3 fL (81-99); MONOCYTES # (AUTO) 0.1 (0.2-0.8); MONOCYTES % 1.9 % (4.4-11.3); NEUTROPHILS # (AUTO) 5.6 (2.1-6.9); NEUTROPHILS % 84.1 % (38.7-80.0); PLATELET COUNT 237 x10e3/uL (140-360); RED BLOOD COUNT 4.41 x10e6/uL (4.3-5.7); RED CELL DISTRIBUTION WIDTH 14.4 % (11.7-14.4)
--- NOTE | 2019-07-24 07:03 | NUR ---
received report from production shift supervisor RN, pt awake, alert, oriented, spouse at bedside, no distress noted, will continue to monitor.
[2019-07-24 07:05] LABS: BLOOD UREA NITROGEN 21 mg/dL (7-26); BUN/CREATININE RATIO 21 (6-25); CARBON DIOXIDE 22 mmol/L (22-29); CHLORIDE 104 mmol/L (98-107); EST GLOMERULAR FILTRATION RATE > 60 ML/MIN (60-); GLUCOSE 135 mg/dL (74-118); SODIUM 138 mmol/L (136-145)
[2019-07-24] MEDS: FUROSEMIDE 40 MG TAB PO SCH (09:19)
[2019-07-24] MEDS: ISOSORBIDE MONONITRATE 20 MG TAB PO SCH ×2 (09:19→17:31)
[2019-07-24] MEDS: PANTOPRAZOLE SOD 40 MG TABEC PO SCH (09:20)
[2019-07-24] MEDS: AMLODIPINE BESYLATE 5 MG TAB PO SCH ×2 (09:21→17:30)
[2019-07-24] MEDS: CEFTRIAXONE SOD 2 GM/NS 100 ML 100 ML IV SCH (13:36)
--- NOTE | 2019-07-24 15:06 | Progress Note ---
DATE: 07/24/2019 Medicine Progress Note SUBJECTIVE: The patient is doing much better today with no complaints. His headaches resolved after giving steroids and valproic acid. His right lower extremity cellulitis is improving tremendously. No overnight events. PHYSICAL EXAMINATION: VITAL SIGNS: Temperature is 95.4, pulse 84, respiratory rate is 18, blood pressure is 122/60, pulse ox 99% on room air. GENERAL: Not in acute distress. Alert and oriented x3. Cooperative on examination. HEENT: Head; normocephalic, atraumatic. Eyes; pupils are equal, round, and reactive to light bilaterally. Extraocular movements are intact bilaterally. Throat; no evidence of erythema or exudates in the posterior pharynx. Has poor dentition. NECK: Supple. Good range of motion. PULMONARY: Clear to auscultation bilaterally. No wheezing, no rales, no rhonchi, no crackles appreciated. CARDIOVASCULAR: Positive S1 and S2. No murmurs, rubs, or gallops appreciated. ABDOMEN: Soft, nondistended, and nontender to palpation. Bowel sounds present. MUSCULOSKELETAL: Strength is 5/5 throughout. No evidence of any muscle deficits on examination. No weakness appreciated. NEUROLOGIC: Cranial nerve 2 through 12 grossly intact. No evidence of any neurological deficits on exam. SKIN: Intact. Warm to touch. Good cap refill. PSYCHIATRIC: Normal affect and mood. EXTREMITIES: No edema. Good range of motion throughout. Right lower extremity cellulitis and redness have improved tremendously with mild erythema now. LABORATORY DATA: Laboratory findings show white count 6.7, hemoglobin 13, hematocrit is 39, platelets of 237. Chemistry; sodium 138, potassium 4, chloride 104, bicarb 22, anion gap of 16, BUN is 21, creatinine is 1, glucose 135, calcium is 9. MICROBIOLOGY: Blood cultures were negative. IMAGING STUDIES: None. IMPRESSION: 1. Right lower extremity cellulitis, improved. 2. Hypertension. 3. Headaches, likely due to underlying migraines. 4. Bilateral lower extremity edema, improved. 5. Hypertension. PLAN: At this time, his cellulitis has improved tremendously. He continues to be on IV antibiotics, being managed by ID. Blood cultures were found to be negative. As for his headaches, CT brain was negative. Neurology was consulted, felt to be this is likely to be migraine headaches, was given some IV Solu-Medrol as well as valproic acid with now his headaches all resolved. The patient is doing much better. He would like to stay another day when I spoke with the patient to see how he does. Otherwise, his labs were stable. We will continue with Lovenox for DVT prophylaxis. Continue with heart healthy diet. I discussed the plan of care with the patient and nursing staff and they verbalized understanding. We will continue with same plan of care at this time. MD MAURY Dunbar/YURIL /[id number]
[2019-07-24] MEDS: SODIUM CHLORIDE 0.9% 1000ML 1,000 ML IV SCH ×2 (17:19→23:34)
[2019-07-24] MEDS: ENOXAPARIN SOD INJ 40 MG/0.4 ML SYR SC SCH (17:32)
--- NOTE | 2019-07-24 19:15 | NUR ---
Patient received sitting up in bed. AAO x 4. at bedside. Patient had no complaints of pain. No signs of respiratory distress. IVF infusing at 75 cc /hr. Fall precautions implemented. Patient instructed to call for assistance when needed. Call light within reach.
--- NOTE | 2019-07-24 23:48 | NUR ---
Patient's IV on left arm infiltrated. Old IV removed with tip intact. New IV inserted in right hand 20G. Patient tolerated well.
[2019-07-25] VITALS (8 sets, daily range): BP systolic 124–152; BP diastolic 73–93
[2019-07-25] MEDS: CLINDAMYCIN 600MG / 50ML 50 ML IV SCH ×4 (00:05→17:24)
--- NOTE | 2019-07-25 06:45 | NUR ---
Patient resting comfortably. Walking rounds done. Shift report given to oncoming nurse.
--- NOTE | 2019-07-25 06:54 | NUR ---
received shift change report from fast food shift supervisor RN, pt sitting up on side of bed, awake, alert, oriented X3, no distress noted, call light within reach, will continue to monitor.
[2019-07-25] MEDS: SODIUM CHLORIDE 0.9% 1000ML 1,000 ML IV SCH (09:13)
[2019-07-25] MEDS: ISOSORBIDE MONONITRATE 20 MG TAB PO SCH ×2 (09:13→17:20)
[2019-07-25] MEDS: FUROSEMIDE 40 MG TAB PO SCH (09:13)
[2019-07-25] MEDS: PANTOPRAZOLE SOD 40 MG TABEC PO SCH (09:14)
[2019-07-25] MEDS: AMLODIPINE BESYLATE 5 MG TAB PO SCH ×2 (09:14→17:20)
[2019-07-25] MEDS: CEFTRIAXONE SOD 2 GM/NS 100 ML 100 ML IV SCH (11:28)
[2019-07-25] MEDS ORDERED: FUROSEMIDE 40 MG TAB PO SCH (13:15)
--- NOTE | 2019-07-25 16:11 | Progress Note ---
DATE: 07/25/2019 Medicine Progress Note SUBJECTIVE: The patient is doing much better today with no complaints. His right lower extremity cellulitis is improved tremendously. The patient states doing well with no complaints. His right lower leg does look a little bit more swollen. We will go ahead and stop the IV fluids and put him on some Lasix. PHYSICAL EXAMINATION: VITAL SIGNS: Temperature is 96.7, pulse 60, respiratory rate is 20, blood pressure 124/73, and pulse ox 98% on room air. GENERAL: Not in acute distress. Alert and oriented x3. Cooperative on examination. HEENT: Head; normocephalic, atraumatic. Eyes; pupils are equal, round, and reactive to light bilaterally. Extraocular movements intact bilaterally. Throat; no evidence of erythema or exudates in the posterior pharynx. Has poor dentition. NECK: Supple. Good range of motion. PULMONARY: Clear to auscultation bilaterally. No wheezing, no rales, no rhonchi, no crackles appreciated. CARDIOVASCULAR: Positive S1 and S2. No murmurs, rubs, or gallops appreciated. ABDOMEN: Soft, nondistended, and nontender to palpation. Bowel sounds present. MUSCULOSKELETAL: Strength is 5/5 throughout. No evidence of any muscle deficits on examination. No weakness appreciated. NEUROLOGIC: Cranial nerves II through XII grossly intact. No evidence of any neurological deficits on exam. SKIN: Intact. Warm to touch. Good cap refill. PSYCHIATRIC: Normal affect and mood. EXTREMITIES: No edema. Good range of motion throughout. His right lower extremity redness has improved tremendously and now is very minimal, not warm to touch. LABORATORY FINDINGS: Show white count 6.7, hemoglobin 13, hematocrit is 39, and platelets of 237. Chemistry; sodium 138, potassium 4, chloride 104, bicarb 22, anion gap of 16, BUN is 21, creatinine is 1, and calcium is 9. Troponins are negative. MICROBIOLOGY: All negative. IMPRESSION: 1. Right lower extremity cellulitis, improved. 2. Hypertension. 3. Headaches, likely secondary to migraines, resolved. 4. Bilateral lower extremity edema-improving. PLAN: At this time, stop IV fluids, put on Lasix 40 mg daily x5 days. As per his right lower extremity cellulitis has improved tremendously. Continue with IV antibiotics. ID is monitoring closely. Blood cultures were negative. The patient's headaches all resolved, on which Neurology continues to follow. Otherwise, the patient is improving daily. We will continue with same plan of care and get a.m. labs. When the patient feels comfortable, we will consider to discharge home. He states he is not ready at this time once his right lower extremity cellulitis to improve. We will continue to monitor very closely. MD MAURY Dunbar/MICHELLE /[id number]
[2019-07-25] MEDS: ENOXAPARIN SOD INJ 40 MG/0.4 ML SYR SC SCH (17:20)
--- NOTE | 2019-07-25 17:26 | Progress Note ---
DATE: SUBJECTIVE: Mr. Alves is feeling better. The swelling is subsiding slowly. REVIEW OF SYSTEMS: Otherwise unremarkable. PHYSICAL EXAMINATION: GENERAL: He is currently alert, oriented, does not seem to be in acute distress. VITAL SIGNS: Stable, currently afebrile. HEENT: Not icteric. NECK: Supple. CHEST: Clear. HEART: S1 and S2. ABDOMEN: Soft. EXTREMITIES: Leg reduced erythema, but still some edema. IMPRESSION AND PLAN: 1. Cellulitis, slowly better, would like to reduce some edema. We will recommend to do a thigh-high elastic stocking. 2. Pneumonia. 3. Probable underlying dementia. 4. We will follow. MD LACEY Cabezas/MICHELLE /[id number]
--- NOTE | 2019-07-25 19:22 | NUR ---
Patient received sitting up in bed. at bedside. AAO x 3. No acute distress noted. Bed locked and in lowest position. Bed rails up x 2. Call light within reach.
[2019-07-26] VITALS (8 sets, daily range): BP systolic 143–155; BP diastolic 79–95
[2019-07-26] MEDS: CLINDAMYCIN 600MG / 50ML 50 ML IV SCH ×4 (00:30→18:12)
--- NOTE | 2019-07-26 02:26 | NUR ---
IV on right hand infiltrated. Old IV removed with tip intact. New IV inserted in Right hand 20 G.
--- NOTE | 2019-07-26 06:58 | NUR ---
received report at shift change, pt sleeping in bed, no distress noted, call light within reach, will continue to monitor.
[2019-07-26 07:00] LABS: ANION GAP 12.7 mmol/L (8-16); CALCIUM 8.5 mg/dL (8.4-10.2); CARBON DIOXIDE 28 mmol/L (22-29); CHLORIDE 102 mmol/L (98-107); CREATININE, SERUM 0.97 mg/dL (0.72-1.25); EST GLOMERULAR FILTRATION RATE > 60 ML/MIN (60-); GLUCOSE 88 mg/dL (74-118); POTASSIUM 3.7 mmol/L (3.5-5.1); SODIUM 139 mmol/L (136-145)
[2019-07-26 07:22] LABS: BLOOD UREA NITROGEN 20 mg/dL (7-26); BUN/CREATININE RATIO 21 (6-25)
[2019-07-26] MEDS: FUROSEMIDE 40 MG TAB PO SCH (09:45)
[2019-07-26] MEDS: PANTOPRAZOLE SOD 40 MG TABEC PO SCH (09:45)
[2019-07-26] MEDS: ISOSORBIDE MONONITRATE 20 MG TAB PO SCH ×2 (09:45→18:15)
[2019-07-26] MEDS: AMLODIPINE BESYLATE 5 MG TAB PO SCH ×2 (09:45→18:15)
[2019-07-26] MEDS: CEFTRIAXONE SOD 2 GM/NS 100 ML 100 ML IV SCH (09:56)
--- NOTE | 2019-07-26 17:05 | Progress Note ---
DATE: 07/26/2019 Medicine Progress Note SUBJECTIVE: The patient is doing much better today with no complaints. His right lower extremity swelling is much improved. He has some LISSETT hoses. PHYSICAL EXAMINATION: VITAL SIGNS: Temperature is 96.6, pulse 60, respiratory rate is 20, blood pressure 151/82, and pulse ox 97% on room air. GENERAL: Not in acute distress. Alert and oriented x3. Cooperative on examination. HEENT: Head; normocephalic, atraumatic. Eyes; pupils are equal, round, and reactive to light bilaterally. Extraocular movements intact bilaterally. Throat; no evidence of erythema or exudates in the posterior pharynx. Has poor dentition. NECK: Supple. Good range of motion. PULMONARY: Clear to auscultation bilaterally. No wheezing, no rales, no rhonchi, no crackles appreciated. CARDIOVASCULAR: Positive S1 and S2. No murmurs, rubs, or gallops appreciated. ABDOMEN: Soft, nondistended, and nontender to palpation. Bowel sounds present. MUSCULOSKELETAL: Strength is 5/5 throughout. No evidence of any muscle deficits on examination. No weakness appreciated. NEUROLOGIC: Cranial nerves II through XII grossly intact. No evidence of any neurological deficits on exam. SKIN: His right lower extremity cellulitis improved tremendously with very minimal redness today. PSYCHIATRIC: Normal affect and mood. EXTREMITIES: No edema. Good range of motion throughout. LABORATORY FINDINGS: Show labs none today. IMPRESSION: 1. Right lower extremity cellulitis, resolved. 2. Hypertension. 3. Headaches, resolved. 4. Bilateral lower extremities and edema, resolved. PLAN: At this time, he does still have some right lower extremity swelling. We will continue with the Lasix 40 mg daily. He does have LISSETT hoses. Continue with IV antibiotics for today. Blood cultures were negative. ID is following. Plan to discharge tomorrow on oral antibiotics or diuretics. I discussed with him the plan of care and he agrees. Plan for discharge tomorrow. Discussed with nursing staff. Get a.m. labs. MD MAURY Dunbar/MICHELLE /[id number]
[2019-07-26] MEDS: ENOXAPARIN SOD INJ 40 MG/0.4 ML SYR SC SCH (18:15)
[2019-07-27] VITALS (7 sets, daily range): BP systolic 117–152; BP diastolic 60–90
[2019-07-27] MEDS: CLINDAMYCIN 600MG / 50ML 50 ML IV SCH ×4 (00:44→18:09)
[2019-07-27 06:28] LABS: BASOPHILS # (AUTO) 0.1 (0.0-0.1); BASOPHILS % 0.9 % (0.0-1.0); EOSINOPHILS # (AUTO) 0.2 (0.0-0.4); EOSINOPHILS % 2.1 % (0.0-6.0); HEMATOCRIT 38.9 % (38.2-49.6); HEMOGLOBIN 12.7 g/dL (14.0-18.0); LYMPHOCYTES # (AUTO) 2.3 (1.0-3.2); MEAN CORPUSCULAR HEMOGLOBIN 29.5 pg (28-32); MEAN CORPUSCULAR HGB CONC 32.6 g/dL (31-35); MEAN CORPUSCULAR VOLUME 90.5 fL (81-99); MONOCYTES # (AUTO) 0.9 (0.2-0.8); MONOCYTES % 9.4 % (4.4-11.3); PLATELET COUNT 292 x10e3/uL (140-360); RED CELL DISTRIBUTION WIDTH 14.6 % (11.7-14.4)
[2019-07-27 06:38] LABS: ANION GAP 12.7 mmol/L (8-16); BLOOD UREA NITROGEN 17 mg/dL (7-26); BUN/CREATININE RATIO 19 (6-25); CALCIUM 9.2 mg/dL (8.4-10.2); CARBON DIOXIDE 27 mmol/L (22-29); CHLORIDE 102 mmol/L (98-107); CREATININE, SERUM 0.91 mg/dL (0.72-1.25); EST GLOMERULAR FILTRATION RATE > 60 ML/MIN (60-); GLUCOSE 96 mg/dL (74-118); POTASSIUM 3.7 mmol/L (3.5-5.1); SODIUM 138 mmol/L (136-145)
--- NOTE | 2019-07-27 07:35 | NUR ---
PATIENT SITTING AT BED SIDE TALKING TO FAMILY MEMBER. TELEMETRY BOX [address] + 2 EDEMA NOTED TO LOWER EXTREMITIES, LISSETT HOSE IN PLACE. DENIED PAIN AT THIS TIME. BED IN LOWER POSITION, CALL LIGHT AT REACH.
[2019-07-27] MEDS: PANTOPRAZOLE SOD 40 MG TABEC PO SCH (09:27)
[2019-07-27] MEDS: AMLODIPINE BESYLATE 5 MG TAB PO SCH ×2 (09:27→17:25)
[2019-07-27] MEDS: ISOSORBIDE MONONITRATE 20 MG TAB PO SCH ×2 (09:27→17:25)
[2019-07-27] MEDS: FUROSEMIDE 40 MG TAB PO SCH (09:27)
[2019-07-27] MEDS: CEFTRIAXONE SOD 2 GM/NS 100 ML 100 ML IV SCH (11:30)
--- NOTE | 2019-07-27 12:47 | NUR ---
MD IN TO SEE PATIENT. NEW ORDER RECEIVED.
--- NOTE | 2019-07-27 15:26 | NUR ---
CALLED VASCULAR DEPARTMENT TO REQUEST THE REPORT OF THE PATIENT'S VENOUS DOPPLER. STAFF STATED THAT IT WAS DONE TODAY, WAITING THE REPORT FROM DR AGUILERA. CALL PLACED TO DR AGUILERA OFFICE, MESSAGE LEFT WITH NEGATIVE SPOTTER. AWAITING CALL BACK.
--- NOTE | 2019-07-27 16:24 | NUR ---
Nutrition Screen Note RD Recommendation for Physician: -Continue current diet per MD. Plan of Care: RD following, monitoring for tolerance and adequacy. Education provided. Nutrition reason for involvement: LOS Primary Diagnose(s): right leg cellulitis, SOB PMH: history of hypertension Ht: 71 in Wt: 233 lb BMI: 32.5 kg/m2 IBW: [address] Assessment: 07/27: 79 YOM admitted for cellulitis with PMH listed above. Pt was in the bathroom at time ov visit but RD was able to speak with his . She reports his appetite has been very good, no N/V/C/D/chewing or swallowing issues as well as any food allergies. wanted to education regarding low Na diet for the pt, provided educational handout. She verbalized understanding. Chart reviewed. Labs and meds reviewed. Discussed pt in rounds, pt has venous Doppler today to rule out DVT. Pt is consuming 100% of his meals per meal assessment. Labs: WNL. Will continue to monitor. Current Diet: cardiac Malnutrition Evaluation (07/27) The patient does not meet criteria for a specified degree of malnutrition at this time. Will re-evaluate at follow-up as appropriate. Diet Education Needs Assessment: Diet education indicated, accepted. Learner(s): of the pt Barriers: pt was in the bathroom Cultural/Language Modifications: none Readiness: acceptance Method: discussion, handout, teach back Topics: Low Na diet Understanding/Compliance: verbalized understanding, anticipate good compliance Nutrition Care Level: low Signed: Josseline Damico, RD, LD
--- NOTE | 2019-07-27 17:10 | NUR ---
2ND CALL PLACED TO DR AGUILERA. CALL BACK RECEIVED FROM DR AGUILERA ,HE STATED THAT HE WILL COME BY LATER TO GIVE THE DOPPLER REPORT.
[2019-07-27] MEDS: ENOXAPARIN SOD INJ 40 MG/0.4 ML SYR SC SCH (17:25)
--- NOTE | 2019-07-27 19:55 | NUR ---
Dr. De Oliveira called to report results of Venous Doppler as negative . Patient is negative for DVT in right lower extremity. Dr. Christianson notified; discharge order given.
[2019-07-27] MEDS ORDERED: DOXYCYCLINE HY100 MG PO (20:19)
[2019-07-27] MEDS ORDERED: LASIX40 MG PO (20:22)
--- NOTE | 2019-07-27 20:51 | NUR ---
Patient given discharge instructions. Patient verbalized understanding. IV removed from right arm with tip intact. Patient tolerated well. Patient transported via W/C to private auto.
--- NOTE | 2019-07-30 11:09 | Discharge Summary ---
FINAL DISCHARGE DIAGNOSES: 1. Right lower extremity cellulitis. 2. Hypertension. 3. Headaches, resolved. 4. Bilateral lower extremity edema, resolved. CONSULTANTS: 1. Infectious Disease. 2. Neurology. PHYSICAL EXAMINATION: VITAL SIGNS: Temperature is 97.2, pulse 50, respiratory rate is 20, blood pressure is 142/75, and pulse ox 97% on room air. LABORATORY FINDINGS: Show white count 9.8, hemoglobin 12.7, hematocrit 39, and platelets of 292. Coagulation; PT 16, INR 1.2, PTT 43. Chemistry; sodium 138, potassium 3.7, chloride 102, bicarb 27, anion gap is 12, BUN 17, creatinine 0.91, calcium is 9.2. His troponins were all negative. Albumin was 3.5, total bilirubin was 1, AST was 21, ALT was 22. Lactic acid was 10.5, but normal at this hospital. Urinalysis was negative. MICROBIOLOGY: Blood cultures were negative. IMAGING STUDIES: Chest x-ray on admission just shows some mild right basilar pulmonary opacity. CT of the chest shows no evidence of acute pulmonary embolism. Chest x-ray repeat shows mild bilateral low lung volumes. Interval development of mild density in the right lobe atelectasis. CT brain, no acute abnormality. Lower extremity venous Doppler, there is no evidence of venous thrombosis in the visualized vessels. HOSPITAL COURSE: A 79-year-old male, came in from a Urology's office with complaints of shortness of breath, cough, congestion, not feeling well with subjective fever. The patient was seen in the ER at [facility] and which further workup was performed. Lower extremity Doppler was found to be negative for DVT as the patient reports some right lower extremity redness and swelling. CTA of the chest was found to be negative for pulmonary embolism. The patient was started on broad-spectrum IV antibiotics and was admitted for further evaluation and management, likely etiology of his source of infection is right lower extremity cellulitis and which ID was consulted. The patient maintained on broad-spectrum IV antibiotics. Blood cultures were found to be negative. Bilateral lower extremity Doppler was found to be negative for any DVT. He was started on diuretics with much improvement of the edema. The patient was reporting me having some occipital headaches, requiring Neurology consultation. The patient was given Solu-Medrol as well as some valproic acid and which the headache was aborted. The patient did well prior to being discharged home with no complaints. His cellulitis has improved. His edema has improved and his headaches were all gone. The patient was discharged on oral prescription of antibiotics and follow up with VIET Woodward, in 2 weeks' time. On the day of discharge, vital signs were stable, labs were reviewed and stable. The patient seen and evaluated, examined thoroughly on the day of discharge. No other complaints. The patient verbalized understanding and agrees to plan of care to follow up as an outpatient with the primary care physician in 1 week and Infectious Disease in 2 weeks' time. MEDICATIONS: See med reconciliation form. DISPOSITION: To home. CONDITION: Stable. DIET: Heart healthy. In the event of any worsening symptoms, the patient was advised to come back to the ED for further evaluation. Discharge summary took greater than 35 minutes. MD MAURY Dunbar/MICHELLE /[id number]
== END 2019-07-27 20:50 | disposition home or self-care (01) | DRG 871 ==
LOC: ER 12:04 → ERHOLD 15:19 → MED/SURG3 15:50
PROVIDERS: ADMIT Internal Medicine; ATTEND Internal Medicine
DX: A41.9 Sepsis, unspecified organism (principal); J18.9 Pneumonia, unspecified organism; L03.115 Cellulitis of right lower limb; I10 Essential (primary) hypertension; F03.90 Unspecified dementia, unspecified severity, without behavioral disturbance, psychotic disturbance, mood disturbance, and anxiety
CPT/HCPCS: 36415; 70450; 71045; 71260; 80048; 80053; 81001; 82550; 82553; 83605; 83880; 84484; 85025; 85610; 85730; 87040; 93005; 93971; 99284; J0692; J0696; J1650; J1885; J2550; J2930; J3370; J7030; J7050; Q9967